=== PATIENT | male | born 1985 | race Caucasian/White ===

== ENCOUNTER → 2023-11-19 | Outpatient (CLI) | payer SELFPAY | END | disposition home or self-care (01) | LOC: LAB 17:34 | PROVIDERS: Visit Provider Family Medicine | DX: N23 Unspecified renal colic (principal) | CPT/HCPCS: 87491; 87591 ==

== ENCOUNTER → 2024-05-01 | Outpatient (CLI) | payer BC, SELFPAY ==
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
== END | disposition home or self-care (01) ==
LOC: MTRAD 15:49
PROVIDERS: PCP Family Medicine; Referring Provider Family Medicine; Visit Provider Family Medicine
DX: M25.519 Pain in unspecified shoulder (principal)
CPT/HCPCS: 73030

== ENCOUNTER 2024-05-18 15:14 | Outpatient (RCR) | payer BC, SELFPAY ==
--- NOTE | 2024-07-27 10:05 | HP.PTEVAL ---
Patient's Visit Information Visit Information Visit Information: BROOK IBRAHIM is a 38 year old M referred to Physical Therapy by Viki Birmingham MD with a diagnosis of L shoulder pain. Date of Evaluation: 05/18/24 Physical Therapist: Guero Keyes DPT Visit Plan Frequency: 1x/Week Duration: 6 Weeks Plan: I gave patient RTC strengthening/stability exercises this date. Pt. has marked pain in his L shoulder suggesting RTC involvement. Pt. desires to complete exercises on his own at this point in time. I an okay with this. If not improving over the next 4-6 weeks he is to come back in or follow up with physician for further imaging. Subjective Subjective: Pt. is here today for his initial evaluation with diagnosis of L shoulder pain. Pt. reports having pain for years, but has just managed. He has got to the point where he has to do something about it. Pt. reports no N/T in his arm, but has a marked difficulty with nay over head movements. Pt. is not having difficulty with job related activities and having trouble with sleeping at times. pt. repots using his R arm for alot of work activities, or just deals with the pain. pt. is now hopeful to figure out what is going on with his arm since, it seems to be progressively getting worse. Pain L shoulder: Pain Intensity (Out of 10): 3 Pain Intensity Range: 1 and 8 Objective Objective: POSTURE: Pt. has normal posture in stance. PALPATION: Pt. has marked pain at anterior shoulder pain and pain along biceps tendon. NEURO: Pt. has normal DTR of BUEs. ROM: L shoulder: PROM: full with increased pain at end range flexion and with ER at 90deg. AROM: flexion 160deg increase NW, abd 145deg increase NW, functional ER C3 increase NW, functional IR L2 increase NW. MMT: L shoulder: flexion 4+/5 increase NW, ER 4/5 increase NW, IR 5/5 mild increase NW, ext 5/5 NE. Special Tests L Shoulder Lift Off Test - Subscapular Tear: Positive L Shoulder Drop Sign - IS Test: Negative L Shoulder Empty Can - SS: Positive L Shoulder Belly Press - SupScap: Positive L Shoulder Neer - Impingement: Positive L Shoulder Bradley Colten - Impingement: Positive L Shoulder Biceps Load Test - Labrum: Negative L Shoulder Speeds Test - Labrum/Biceps: Positive Balance/Special Test Scores Quick DASH Score: 29.5450 Goals Goal 1:: LTG: Pt. to be I with HEP Goal Time Frame: 6-8 Weeks Goal 2:: STG: Pt. to sleep throughout the night without increase in L shoulder pain Goal Time Frame: 2-4 Weeks Goal 3:: LTG: pt. to have full strength of L shoulder, symmetrical to R side. Goal Time Frame: 4-6 Weeks Rehabilitation Potential Physical Therapy Diagnosis: Pt. has signs and symptoms consistent with L shoulder pain. Pt. has some hypomobility, actively and marked pain with activation of his RTC on hi L arm. Pt would benefit from PT to work on strengthening/stabilization of his L shoulder. Rehabilitation Potential: Fair Anticipated Interventions Patient/Client Instruction: Educate patient on: Condition, Plan of Care, Risk Factors and Benefits of Fitness Program For the Purpose of:: To improve self management, To prevent re-injury, To improve ability to perform tasks related to life management and To improve tolerance to ADL's Therapeutic Exercise to Include: Strength training, Power training, Endurance training, Coordination, Body mechanics, Postural training and Flexibilty training For the Purpose of:: To decrease pain, To decrease swelling/inflammation, To increase ROM, To improve nutrient delivery to tissue, To improve muscle performance and motor function and To improve ability to perform ADL's Text: Thank you for the opportunity to evaluate your patient. For Medicare and Medicare HMO plans, please review the plan of care and approve it. It will need to be FAXED BACK to us at [phone] for Medicare purposes. For Medicare only, by signing this I certify the plan of care. Please let me know if there are questions or concerns regarding this plan of care. Physician Signature: Date:
== END 2024-05-18 19:00 | disposition home or self-care (01) ==
LOC: PT 15:14
PROVIDERS: PCP Family Medicine; Referring Provider Family Medicine; Visit Provider Family Medicine
DX: M25.519 Pain in unspecified shoulder (principal)
CPT/HCPCS: 97161

== ENCOUNTER → 2024-08-27 | Outpatient (CLI) | payer BC, SELFPAY ==
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
--- NOTE | 2024-08-27 16:13 | MRI_ITS ---
PROCEDURE: UPPER EXT JOINT ONLY(ROUTINE) 08/27/2024 REASON FOR EXAM: INJURY TECHNIQUE: T1, T2, PD, UPPER EXT JOINT ONLY(ROUTINE) Multiplanar and multisequence images were obtained without IV contrast administration. COMPARISON: COMPARISON: None FINDINGS: Bone Marrow: There is no bony contusion or occult fracture. AC joint: The AC joint is aligned without evidence of separation. There is a type 2 acromion. Rotator cuff: There is no muscular atrophy. There is moderate distal supraspinatus and infraspinatus tendinopathy without full-thickness tear or retraction. The subscapularis and teres minor appear intact. Labrum: The labrum appears intact. Biceps tendon: The biceps tendon is present in the biceps tendon groove without avulsion. There is thickening of the inferior glenohumeral ligament, which can indicate adhesive capsulitis. Effusion: There is no significant joint effusion. There is no significant abnormal bursal fluid. MRI/Upper Ext Joint Only(Routine) IMPRESSION: There is moderate distal supraspinatus and infraspinatus tendinopathy without f ull-thickness tear or retraction. There is thickening of the inferior glenohumeral ligament, which can indicate a dhesive capsulitis. Reading Location: [facility]
--- OUTSIDE RECORDS SUMMARY | 2024-08-27 20:41 | XMS RPT_ITS | CCD ---
Author Organization [facility] Care Team Providers Care Process Control Board Operator Name Role Phone [email or web address] Unavailable Unavailable LUCAS, JOCELYNE Unavailable Unavailable LUCAS, JOCELYNE Unavailable Unavailable LUCAS, JOCELYNE Unavailable Unavailable LUCAS, JOCELYNE Unavailable Unavailable LUCAS, JOCELYNE Unavailable Unavailable LUCAS, JOCELYNE Unavailable Unavailable LUCAS, JOCELYNE Unavailable Unavailable Frederick, Hunter Hoover Primary Care [facility] er HUNTER MACK Attending Melanie vailable FREDERICK, HUNTER HOOVER Primary Care Melanie vailable FREDERICK, HUNTER CHOI MOUNIR Primary Care Melanie vailable FREDERICK, HUNTER HOOVER Attending Melanie vailable FREDERICK, HUNTER CHOI MOUNIR Primary Care Melanie vailable KALPANA HENDERSON Attending Unavailable Viki Birmingham MD Primary Care Provider Viki Birmingham MD Attending Provider Viki Birmingham MD Referring Provider [phone] Viki Birmingham Referring Unavailable Viki Birimngham Attending Unavailable Viki Birmingham Primary Care Unavailable Viki Birmingham Attending Unavailable Viki Birmingham Primary Care Unavailable Viki Birmingham Referring Unavailable Viki Birmingham Attending Unavailable Valencia, Viki Primary Care Unavailable Viki Birmingham Referring Unavailable Viki Birmingham Attending Unavailable Medications Current Medications Medication Drug Class(es) Dates Sig (Normalized) Sig (Original) divalproex sodium 500 mg delayed release oral tablet (1 source) Mood Stabilizer, Anti-epileptic Agent take 1 tablet by mouth twice daily divalproex (DEPAKOTE) 500 MG delayed release (DR) tablet Take 500 mg by mouth 2 (two) times a day . 0 Active Problems Active Problems Problem Classification Problem Date Documented Da te Episodic/Chronic Anxiety disorders (4 sources) Anxiety; Translations: [Anxiety disorder, unspecified] Onset: 11-13-2019 11-13-2019 Chronic Essential hypertension (1 source) Essential (primary) hypertension; Translations: [ESSENTIAL (PRIMARY) HYPERTENSION] Onset: 01-01-2017 Chronic Nonspecific chest pain (3 sources) Other chest pain; Translations: [Chest pain, unspecified] Onset: 01-01-2017 Episodic Other non-traumatic joint disorders (2 sources) Pain in unspecified shoulder; Translations: [Pain in unspecified shoulder] Onset: 05-08-2024 Episodic Past or Other Problems Problem Classification Problem Date Documented Da te Episodic/Chronic Calculus of urinary tract (1 source) Unspecified renal colic; Translations: [Unspecified renal colic] Onset: 02-20-2024 Episodic Unclassified (1 source) Acquired absence of other specified parts of digestive tract; Translations: [ACQUIRED ABSENCE OF OTHER SPECIFIED PARTS OF DIGESTIVE TRACT] Onset: 01-01-2017 Episodic Results Test Name Value Interpretation Reference Range Facility Inital Evaluation (1) - [facility] 07-27-2024 Inital Evaluation (1) - [facility] [address] [place] [address] [address] [place] [address] / REHABILITATION SERVICES INITIAL EVALUATION MR#: [id number] Acct: [id number] Name: BROOK IBRAHIM Rep #: [id number] : 1985 38 From: Guero DCT Referring Dr.: Dr. Viki Birmingham MD Status: REG [facility] Insurance: ANTH SELF PAY INSURANCE Patient's Visit Information Visit Information Visit Information: BROOK IBRAHIM is a 38 year old M referred to Physical Therapy by Viki Birmingham MD with a diagnosis of L shoulder pain. Date of Evaluation: 05/18/24 Physical Therapist: Guero Keyes DPT Visit Plan Frequency: 1x/Week Duration: 6 Weeks Plan: I gave patient RTC strengthening/stabilit y exercises this date. Pt. has marked pain in his L shoulder suggesting RTC involvement. Pt. desires to complete exercises on his own at this point in time. I an okay with this. If not improving over the next 4-6 weeks he is to come back in or follow up with physician for further imaging. Subjective Subjective: Pt. is here today for his initial evaluation with diagnosis of L shoulder pain. Pt. reports having pain for years, but has just managed. He has got to the point where he has to do something about it. Pt. reports no N/T in his arm, but has a marked difficulty with nay over head movements. Pt. is not having difficulty with job related activities and having trouble with sleeping at times. pt. repots using his R arm for alot of work activities, or just deals with the pain. pt. is now hopeful to figure out what is going on with his arm since, it seems to be progressively getting worse. Pain L shoulder: Pain Intensity (Out of 10): 3 Pain Intensity Range: 1 and 8 Objective Objective: POSTURE: Pt. has normal posture in stance. PALPATION: Pt. has marked pain at anterior shoulder pain and pain along biceps tendon. NEURO: Pt. has normal DTR of BUEs. ROM: L shoulder: PROM: full with increased pain at end range flexion and with ER at 90deg. AROM: flexion 160deg increase NW, abd 145deg increase NW, functional ER C3 increase NW, functional IR L2 increase NW. MMT: L shoulder: flexion 4+/5 increase NW, ER 4/5 increase NW, IR 5/5 mild increase NW, ext 5/5 NE. Special Tests L Shoulder Lift Off Test - Subscapular Tear: Positive L Shoulder Drop Sign - IS Test: Negative L Shoulder Empty Can - SS: Positive L Shoulder Belly Press - SupScap: Positive L Shoulder Neer - Impingement: Positive L Shoulder Bradley Colten - Impingement: Positive L Shoulder Biceps Load Test - Labrum: Negative L Shoulder Speeds Test - Labrum/Biceps: Positive Balance/Special Test Scores Quick DASH Score: 29.5450 Goals Goal 1:: LTG: Pt. to be I with HEP Goal Time Frame: 6-8 Weeks Goal 2:: STG: Pt. to sleep throughout the night without increase in L shoulder pain Goal Time Frame: 2-4 Weeks Goal 3:: LTG: pt. to have full strength of L shoulder, symmetrical to R side. Goal Time Frame: 4-6 Weeks Rehabilitation Potential Physical Therapy Diagnosis: Pt. has signs and symptoms consistent with L shoulder pain. Pt. has some hypomobility, actively and marked pain with activation of his RTC on hi L arm. Pt would benefit from PT to work on strengthening/stabiliz ation of his L shoulder. Rehabilitation Potential: Fair Anticipated Interventions Patient/Client Instruction: Educate patient on: Condition, Plan of Care, Risk Factors and Benefits of Fitness Program For the Purpose of:: To improve self management, To prevent re-injury, To improve ability to perform tasks related to life management and To improve tolerance to ADL's Therapeutic Exercise to Include: Strength training, Power training, Endurance training, Coordination, Body mechanics, Postural training and Flexibilty training For the Purpose of:: To decrease pain, To decrease swelling/inflammation, To increase ROM, To improve nutrient delivery to tissue, To improve muscle performance and motor function and To improve ability to perform ADL's Text: Thank you for the opportunity to evaluate your patient. For Medicare and Medicare HMO plans, please review the plan of care and approve it. It will need to be FAXED BACK to us at [phone] for Medicare purposes. For Medicare only, by signing this I certify the plan of care. Please let me know if there are questions or concerns regarding this plan of care. Physician Signature: Date:__ 07/27/24 1005 CC: Dr. Viki Birmingham MD CLS Signed Normal [facility] Shoulder min 2 Viewson 05-01 Shoulder min 2 Views [facility] [address] [place], [place] [id number] Shoulder min 2 Views MR#: [id number] Acct: [id number] Name: BROOK IBRAHIM Rep #: [id number] : 1985 M 38 From: Stacey Valerio DO PCP: Dr. Viki Birmingham MD Status: REG CLI Study: Shoulder min 2 Views Date of Exam: 05/01/24 Exam# [id number] Ordering Dr: Viki Birmingham MD PROCEDURE: SHOULDER MIN 2 VIEWS REASON FOR EXAM: LEFT SHOULDER INJURY TECHNIQUE: 3 view(s) of the left shoulder COMPARISON: None. FINDINGS: No fracture. No suspicious bone lesion. Normal alignment of the acromioclavicular and glenohumeral joints. Soft tissues are unremarkable. RAD/Shoulder min 2 Views IMPRESSION: NEGATIVE SHOULDER SERIES Reading Location: [facility] CC: Dr. Viki Birmingham MD Kitchen Work Supervisor: Signed Normal [facility] [id number] 11-20-2023 [id number] Pending Chlamydia Trachomatis PCR NEGATIVE for Chlamydia trachomatis N. gonorrhoeae PCR Negative for N. gonorrhoeae Normal [facility] Comment on above: Performed By: #### M 8200.2203 #### [facility] [address] [place], [address] XR CHEST PA/APon 02-06-2023 XR CHEST PA/AP EXAMINATION: 2 FRONTAL VIEW XR CHEST PA/AP 02/06/2023 COMPARISON: Chest, 10/26/2013. HISTORY: Dx: R07.9 (Chest pain, unspecified type) Injury/Trauma or Illness?:Illness/Other How long have you had these symptoms (acute/chronic)?:Acute chest pain FINDINGS: The lungs are clear with no acute cardiopulmonary disease. No pulmonary edema, pneumothorax or pleural effusion. The heart, mediastinal structures and visualized bony structures are unremarkable. IMPRESSION: 1. No acute abnormality. [email or web address] Workstation ID: [id number] Dictated by: RENO RON on SatFeb 06, 2023 7:44:37 PM EST Transcribed by: FISH PULIDO on SatFeb 06, 2023 7:45:46 PM EST Finalized by: RENO RON on SatFeb 06, 2023 9:50:05 PM EST Normal [facility] Comment on above: Order Comment: Injur y/Trauma or Illness?:Illness/Other How long have you had these symptoms (acute/chronic)?:Acute Reason for exam?:chest pain and sob History of cancer?:no Surgeries, chemotherapy, or radiation?:none Type of Exam?:Initial Additional signs and symptoms?:none CBC w/Auto Differentialon Anemia JOURNALISM PROFESSOR Normal [facility] Comment on above: Performed By: #### C BC ####[address] [address] Anisocytosis presence JOURNALISM PROFESSOR Normal [facility] Comment on above: Performed By: #### C BC ####[address] [address] Basophils Abs. # 0.0 K/uL Normal 0.0-0.1 [facility] Comment on above: Performed By: #### C BC ####[address] [address] Basophils/100 WBC Auto (Bld) JOURNALISM PROFESSOR Normal [facility] Comment on above: Performed By: #### C BC ####[address] [address] Basophils/100 WBC Auto (Bld) 0.4 % Normal 0.2-1.0 [facility] Comment on above: Performed By: #### C BC ####[address] [address] Bosophillia # JOURNALISM PROFESSOR Normal [facility] Comment on above: Performed By: #### C BC ####[address] [address] Eosinophils JOURNALISM PROFESSOR Normal [facility] Comment on above: Performed By: #### C BC ####[address] [address] Eosinophils 0.0 10*3/uL Normal 0.0-0.2 [facility] Comment on above: Performed By: #### C BC ####[address] [address] Eosinophils/100 leukocytes JOURNALISM PROFESSOR Normal [facility] Comment on above: Performed By: #### C BC ####[address] [address] Eosinophils/100 leukocytes 0.5 % Low 0.9-2.9 [facility] Comment on above: Performed By: #### C BC ####[address] [address] Erythocytosis JOURNALISM PROFESSOR Normal [facility] Comment on above: Performed By: #### C BC ####[address] [address] Erythrocyte distribution width Auto Ratio (RBC) 12.9 % Normal 11.5-14.5 [facility] Comment on above: Performed By: #### C BC ####[address] [address] Erythrocytes (RBC) 0.0 10*6/uL Normal [facility] Comment on above: Performed By: #### C BC ####[address] [address] Erythrocytes (RBC) 5.30 10*6/uL Normal 4.13-5.69 [facility] Comment on above: Performed By: #### C BC ####[address] [address] Hematocrit (HCT) 47.7 % Normal 36.7-50.6 [facility] Comment on above: Performed By: #### C BC ####[address] [address] Hemoglobin mass conc (Bld) 16.5 g/dL Normal 12.4-17.3 [facility] Comment on above: Performed By: #### C BC ####[address] [address] Hypochromia JOURNALISM PROFESSOR Normal [facility] Comment on above: Performed By: #### C BC ####[address] [address] Large Platelets JOURNALISM PROFESSOR Normal [facility] Comment on above: Performed By: #### C BC ####[address] [address] Leukocytosis JOURNALISM PROFESSOR Normal [facility] Comment on above: Performed By: #### C BC ####[address] [address] Leukopenia JOURNALISM PROFESSOR Normal [facility] Comment on above: Performed By: #### C BC ####[address] [address] Lymphocytes JOURNALISM PROFESSOR Normal [facility] Comment on above: Performed By: #### C BC ####[address] [address] Lymphocytes 1.6 10*3/uL Normal 1.3-2.9 [facility] Comment on above: Performed By: #### C BC ####[address] [address] Lymphocytes/100 leukocytes JOURNALISM PROFESSOR Normal [facility] Comment on above: Performed By: #### C BC ####[address] [address] Lymphocytes/100 leukocytes 23.1 % Normal 17.0-45.5 [facility] Comment on above: Performed By: #### C BC ####[address] [address] Macrocytosis JOURNALISM PROFESSOR Normal [facility] Comment on above: Performed By: #### C BC ####[address] [address] MCH 31.0 pg Normal 27.0-31.0 [facility] Comment on above: Performed By: #### C BC ####[place] [address] MCHC mass conc (RBC) 34.5 g/dL Normal 33.0-37.0 [facility] Comment on above: Performed By: #### C BC ####[place] [address] MCV 90.0 fL Normal 80.0-94.0 [facility] Comment on above: Performed By: #### C BC ####[place] [address] Microcytosis JOURNALISM PROFESSOR Normal [facility] Comment on above: Performed By: #### C BC ####[place] [address] Monocytes 0.4 10*3/uL Normal 0.3-0.8 [facility] Comment on above: Performed By: #### C BC ####[place] [address] Monocytes/100 leukocytes 5.3 % Low 5.5-11.7 [facility] Comment on above: Performed By: #### C BC ####[place] [address] Monocytosis % JOURNALISM PROFESSOR Normal [facility] Comment on above: Performed By: #### C BC ####[place] [address] Neutropenia # JOURNALISM PROFESSOR Normal [facility] Comment on above: Performed By: #### C BC ####[place] [address] Neutropenia % JOURNALISM PROFESSOR Normal [facility] Comment on above: Performed By: #### C BC ####[place] [address] Neutrophilia % JOURNALISM PROFESSOR Normal [facility] Comment on above: Performed By: #### C BC ####[address] [address] Neutrophils 4.9 10*3/uL High 2.2-4.8 [facility] Comment on above: Performed By: #### C BC ####[address] [address] Neutrophils JOURNALISM PROFESSOR Normal [facility] Comment on above: Performed By: #### C BC ####[address] [address] Neutrophils/100 WBC Auto (Bld) 70.7 % High 43.0-65.0 [facility] Comment on above: Performed By: #### C BC ####[address] [address] NRBC % 0.0 % Normal [facility] Comment on above: Performed By: #### C BC ####[address] [address] Pancytopenia JOURNALISM PROFESSOR Normal [facility] Comment on above: Performed By: #### C BC ####[address] [address] Platelet mean volume (PMV) 9.7 fL Normal 7.4-10.4 [facility] Comment on above: Performed By: #### C BC ####[address] [address] Platelets 177 10*3/uL Normal 148-402 [facility] Comment on above: Performed By: #### C BC ####[address] [address] Poikilocytosis JOURNALISM PROFESSOR Normal [facility] Comment on above: Performed By: #### C BC ####[address] [address] Small Platelets JOURNALISM PROFESSOR Normal [facility] Comment on above: Performed By: #### C BC ####[facility] [place] [address] Thrombocytopenia JOURNALISM PROFESSOR Normal [facility] Comment on above: Performed By: #### C BC ####[address] [address] Thrombocytopenia. JOURNALISM PROFESSOR Normal [facility] Comment on above: Performed By: #### C BC ####[address] [address] Thrombocytosis JOURNALISM PROFESSOR Normal [facility] Comment on above: Performed By: #### C BC ####[address] [address] WBC (Leukocytes) 6.9 10*3/uL Normal 3.6-10.8 [facility] Comment on above: Performed By: #### C BC ####[address] [address] CHEST APon 11-02-2016 CHEST AP HISTORY: RFE: Chest PainCOMPARISON: NoneFINDINGS: A single frontal view of the chest was obtained. The cardiomediastinal silhouette is within normal limits. The pulmonary vascular markings are notsigificantly distended. No focal pulmonary consolidation, significant effusionor pneumothorax.IMPRESSIO N: There is no radiographic evidence for acute pulmonary process.Electronically Signed by Reggie Alvarez 11/02/2016 15:10 Normal [facility] Comprehensive Metabolic Pane gemma 11-02-2016 Alanine aminotransferase (ALT) 32 U/L Normal 13-66 [facility] Comment on above: Performed By: #### C MP ####[address] [address] Albumin 4.4 g/dL Normal 3.4-5.0 [facility] Comment on above: Performed By: #### C MP ####[address] [address] Albumin/Globulin Ratio 1.4 {ratio} Normal 1.1-2.5 [facility] Comment on above: Performed By: #### C MP ####[address] [address] Alkaline phosphatase (ALP) 86 U/L Normal 54-112 [facility] Comment on above: Performed By: #### C MP ####[address] [address] Anion gap 12.4 mmol/L Normal 8.0-16.0 [facility] Comment on above: Result Comment: CO RRECTED REPORT: Previous result was 12.9 at 15:17 on 11/02/16 Performed By: #### C MP ####[address] [address] Aspartate aminotransferase (AST) 18 U/L Normal 3-39 [facility] Comment on above: Performed By: #### C MP ####[address] [address] Bilirubin Ql (U) 0.52 mg/dL Normal 0.00-0.99 [facility] Comment on above: Performed By: #### C MP ####[address] [address] BUN/Creatinine Ratio 11 mg/mg Normal 6-20 [facility] Comment on above: Performed By: #### C MP ####[address] [address] Calcium 9.6 mg/dL Normal 8.2-10.0 [facility] Comment on above: Performed By: #### C MP ####[address] [address] Chloride 102 mmol/L Normal 94-110 [facility] Comment on above: Performed By: #### C MP ####[address] [address] CO2 27 mmol/L Normal 21-34 [facility] Comment on above: Performed By: #### C MP ####[address] [address] Creatinine 1.22 mg/dL High 0.50-1.17 [facility] Comment on above: Performed By: #### C MP ####[address] [address] eGFR (black) mL/min/{1.73_m2} Normal >60 [facility] Comment on above: Result Comment: Reflexologist karyn Kidney Disease less than 60 mL/min/1.73 c5Inupph Failure less than 15 mL/min/1.73 [id number] estimated GFR by age:30-39 years 107 mL/min/1.73 m2 Performed By: #### C MP ####[address] [address] eGFR (non-black) mL/min/{1.73_m2} Normal >60 [facility] Comment on above: Performed By: #### C MP ####[address] [address] Globulin 3.2 g/dL Normal 1.5-4.5 [facility] Comment on above: Performed By: #### C MP ####[address] [address] Glucose mass conc 104 mg/dL High 65-100 [facility] Comment on above: Performed By: #### C MP ####[address] [address] Potassium molar conc 3.4 mmol/L Normal 3.3-5.1 [facility] Comment on above: Performed By: #### C MP ####[address] [address] Protein 7.6 g/dL Normal 6.1-8.2 [facility] Comment on above: Performed By: #### C MP ####[address] [address] Sodium 138 mmol/L Normal 132-145 [facility] Comment on above: Performed By: #### C MP ####[address] [address] Urea nitrogen 14.0 mg/dL Normal 3.2-26.9 [facility] Comment on above: Performed By: #### C MP ####[address] [address] Creatine Kinaseon 11-02-2016 Creatine kinase (CK) 149 U/L Normal 39-308 [facility] Comment on above: Performed By: #### C PK ####[place] [address] D-Dimeron 11-02-2016 Fibrin D-dimer FEU ug/mL Normal 0-229 [facility] Comment on above: Result Comment: The diagnostic cutoff (PE/DVT): 230 ng/mL (DDU)The results of this test should alway be interpreted in conjunction with apretest probability assessment as a negative indicator for deep -- veinthrobosis (DVT) or pulmonary embolism (PE). Note new reference range and Test units 10-27-13 06:15 Performed By: #### D MICHAEL ####[address] [address] Troponin ion 11-02-2016 Troponin I.cardiac mass conc ng/mL Normal 0.000-0.056 [facility] Comment on above: Result Comment: Norm al: <0.056 ng/mLIndeterminate: 0.057 - 0.59 ng/mLPositive: >0.59 ng/mL Performed By: #### L TROP ####[address] [address] Troponin I.cardiac mass conc JOURNALISM PROFESSOR Normal 0.00-0.07 [facility] Comment on above: Result Comment: Norm al: <0.007 ng/mLIndeterminate: 0.007 - 0.60 ng/mLPositive: >0.60 ng/mL Performed By: #### L TROP ####[facility] [place] [address] Vital Signs Date Time Vital Sign Value Performing Clinician Paul guzman 11-12-2019 15:39-0400 BMI (Body Mass Index) 29.84 kg/m2 [facility] 11-12-2019 15:39-0400 Body Temperature 99.81 [degF] [facility] 11-12-2019 15:39-0400 Body weight 122.43 kg [facility] 11-12-2019 15:39-0400 BP Diastolic 80 mm[Hg] [facility] 11-12-2019 15:39-0400 BP Systolic 136 mm[Hg] [facility] 11-12-2019 15:39-0400 Height 202.6 cm [facility] 11-12-2019 15:39-0400 Pulse (Heart Rate) 55 /min [facility] 11-12-2019 15:39-0400 Pulse Oximetry 95 % [facility] 11-12-2019 15:39-0400 Respiratory Rate 18 /min [facility] Encounters Encounter Date Encounter Type Care Provider Facility Start: 08-27-2024 ambulatory Viki Birmingham Facility:[facility] Start: 05-18-2024 ambulatory Viki Birmingham Facility:[facility] Start: 05-01-2024 End: 05-01-2024 ariella Birmingham MD Work Phone: [facility] Work Phone: Start: 05-01-2024 End: 05-01-[address] Viki Birmingham MD -Radiology, [place] Work Phone: Start: 05-01-2024 End: 05-01-2024 ambulatory Viki Valencia Facility:[facility] Start: 11-19-2023 End: 11-19-2023 ambulatory [facility] Facility:[facility] Start: 02-06-2023 End: 02-06-2023 Emergency department patient visit HUNTERMELISSA CHOI DANEJORGE [facility] Start: 08-02-2020 End: 08-02-2020 [facility] Start: 11-12-2019 End: 11-13-2019 [facility] Start: 11-12-2019 End: 11-13-2019 Office outpatient visit 15 minutes Hunter Denton Eastssef Work Phone: [facility] Comment on above: Anxiety (Primary Dx) Start: 02-27-2017 End: 02-27-2017 Ambulatory [facility] Facility: Start: 11-29-2016 End: 11-29-2016 Ambulatory [facility] Facility: Start: 11-08-2016 End: 11-08-2016 Ambulatory [facility] Facility: Start: 11-02-2016 End: 11-02-2016 Emergency department patient visit NITZA. Facility: Procedures Date Procedure Procedure Detail Performing Clinician Start: 05-01-2024 Plain X-ray of shoulder Viki Birmingham MD Work Phone: Start: 11-12-2019 Adult depression screening assessment Hunter Mack Plan of Treatment Date Care Activity Detail Author Start: 11-11-2020 Adolescent depressio n screening assessment Depression Screening (PHQ9) [facility] Start: 12-28-2019 End: 12-28-2019 Office Visit 12/28/2019 Office Visit Primary Care Hunter Mack MD [address] [place] [address] [phone] [facility] Start: 10-13-2019 Influenza vaccinatio n given Sequential Influenza Vaccine (#1) [facility] Start: 2002 Hepatitis C antibody , confirmatory test Hepatitis C Screening [facility] Start: 09-01-1999 HIV screening HIV Screening [facility] Start: 09-01-1987 History and physical examination, annual for health maintenance Wellness Visit [facility] Start: 1985 Tetanus vaccination Tetanus: Every 1 0yrs [facility] Payers Date Payer Category Payer Self-pay 2022 Unknown [id number] 2019 Unknown [employer] BC[employer] OUT OF STATE [facility] [id number] 2019-Present [id number] 2011 Unknown [id number] 1984 Unknown [id number] 1984 Unknown [id number] 1984 Unknown [id number] Unknown [id number] Unknown [id number] Unknown [id number] Unknown [id number] Social History Date Type Detail Facility Start: 11-13-2019 [facility] Start: 11-13-2019 Tobacco use and exposure Current user [facility] History of tobacco use Snuff [facility] Start: 11-13-2019 Alcohol intake Current drinke r of alcohol (finding) [facility] Start: 11-12-2019 History SD[facility] Start: 11-12-2019 History SDOH [facility] Start: 11-12-2019 History SDOH Food Worry 1 [facility] Start: 11-12-2019 History SDOH Transpo rt Non-Med 98 [facility] Sex Assigned At Not on file [place] [facility] Exposure to SARS-CoV -2 (event) Not sure [facility] Work Phone: Start: 05-08-2024 Sex Male (finding) [facility] Start: 1985 Sex Assigned At Male [facility] Radiology Diagnostic study note 05-01-2024 Note Date & Type Note Facility 05-01-2024 Radiology Diagnostic study note [facility] Imaging Services [address] [place], [place] [id number] Shoulder min 2 Views MR#: [id number] Acct: [id number] Name: BROOK IBRAHIM Rep #: [id number] : 1985 M 38 From: Javier Valerio DO PCP: Dr. Viki Birmingham MD Status: REG CL I Study:Shoulder min 2 Views Date of Exam: 05/01/24 Exam# [id number] Ordering Dr: Mary Jane Birmingham MD PROCEDURE: SHOULDER MIN 2 VIEWS REASON FOR EXAM: LEFT SHOULDER INJURY TECHNIQUE: 3 view(s) of the left shoulder COMPARISON: None. FINDINGS: No fracture. No suspicious bone lesion. Normal alignment of the acromioclavicular and glenohumeral joints. Soft tissues are unremarkable. RAD/Shoulder min 2 Views IMPRESSION: NEGATIVE SHOULDER SERIES Reading Location: [facility] CC: Dr. Viki Birmingham MD ~ Kitchen Work Supervisor: Signed [facility] Evaluation note Note Date & Type Note Facility Evaluation note No assessment information availa ble [facility] Work Phone: Reason for referral (narrative) Note Date & Type Note Facility Reason for referral (narrative) No reason for referral information available [facility] Work Phone: Summary Purpose Family History No Family History Records FoundNo Family History Records FoundNo Family History Records FoundNo Family History Records Found Advance Directives No Advanced Directives Records FoundDocuments on File Type Date 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 [place] [address] [facility] [address] [place] [address] Deep Breathing / Anxiety Most people who don't have anxiety tend to take about 8 breaths per minute. Most individuals with anxiety or high levels of stress notice they take more than 8 breaths per minute, this tends to be short, shallow, chest breathing. One of the best ways to combat shallow chest breathing is to practice diaphragmatic breathing. Thisis really just learning to take slow full breaths from your abdomen instead of short shallow breaths from your chest. If you practice this just 5 minutes each day you can significantly reduce your overall level of anxiety and stress. Slow deep breaths tell your body to relax and help turn off your fight or flight response So, let's turn our attention to learning how to do this. It might be easier at first to practice while laying down. If this isn't possible, do the exercise sitting in a chair with both feet on the floor. Place one hand on your stomach and one on your upper chest. The goal here is to inhale in a waythat only moves your lower hand, while your upper hand stays still. You might just do this for a few breaths in an exaggerated way to get a feel for it. The reason it's important to breath from your abdomen is because you will be able to fill your lungs up from the bottom up. This helps you to takea full breath that is much more comfortable, and it s a more efficient way to breath. Try to use deep breathing for 10 breaths. count to 4 for each inhalation and then pause briefly. Then, as you exhale, try to let the air out slowly - also taking to the count of 4. So, inhale to the count of 4, you'll pause, and then you will exhale to a count to 4 - that will be one full breath. Try to do 10. If you are used to breathing shallowly from your chest, you might find this a little bit uncomfortable at first. You might also feel a little light-headed. If this happens, just go at a pace that is a little bit quicker, maybe 3 counts in, pause, 3 counts out. Don't let yourself get frustrated, if you can t follow the 4 count at first, with practice you will be able to slow your breathing down. OK. Get comfortable laying down or sitting up in a chair. Place one hand on your stomach and one onyour upper chest. Remember, you only want your lower hand to move during this exercise. It is also helpful to inhale through your nose and exhale through your mouth. This way you can concentrate on the cool refreshing air coming in and the warm air leaving your body. OK... Get ready... And let's begin... Inhale, two, three, four.... Pause .... Exhale, two, three, four. (Go ten times) documented in this encounter History of Present Illness * Hunter Mack MD - 11/12/2019 4:07 PM EDT Chief Complaint Patient presents with GAD7 SCORE : 17! HPI: Brook Ibrahim is 34-year-old gentleman presenting today for further evaluation of anxiety symptoms. Patient is otherwise healthy new to our clinic coming to establish care as well. Patient reports concerns for severe anxiety related to previous negative experience with pet dogs. Has had 2 pet dogs 2 years ago when they started getting flea infection and he was trying hard to keep them away from his 3 daughters, started becoming very anxious about it until he let them go. Forthe past 2 years he has been doing good not experiencing any anxiety signs and symptoms. Recently family started considering having another pet dog, as he was searching he started having reemerging anxiety symptoms including chest tightness and pressure last longing for 3 to 4 days. Called his prior primary care physician who suggested that he would start on Depakote 500 mg twice a dayfor a month until he reestablishes care for an antianxiety medication. Patient reports that as soon as he took the decision to not have another pet dog his anxiety symptoms resolved. Stopped taking Depakote after 2 weeks. Denies any depression signs and symptoms or suicidal ideations. Currently has been symptom-free forabout 1 week and has been around other family members and friends' dogs with no further concerns. No past medical history on file. Past Surgical History: Procedure Laterality Date APPENDECTOMY VASECTOMY Family History Problem Relation Age of Onset Hypertension Father Hypertension Brother Social History Tobacco Use Smoking status: Never Smoker Smokeless tobacco: Current User Types: Snuff Substance Use Topics Alcohol use: Yes Frequency: Monthly or less Drinks per session: 3 or 4 Binge frequency: Less than monthly Drug use: Never Review of Systems Constitutional: Negative for activity change, chills, fatigue and fever. HENT: Negative for sinus pain, sore throat, trouble swallowing and voice change. Eyes: Negative. Respiratory: Negative for cough, chest tightness, shortness of breath and wheezing. Cardiovascular: Negative for chest pain, palpitations and leg swelling. Gastrointestinal: Negative for abdominal distention, abdominal pain, anal bleeding, diarrhea, nausea and vomiting. Endocrine: Negative. Genitourinary: Negative for dysuria and flank pain. Musculoskeletal: Negative for arthralgias, back pain, gait problem and myalgias. Skin: Negative for rash. Allergic/Immunologic: Negative. Neurological: Negative. Hematological: Negative for adenopathy. Psychiatric/Behavioral: Negative. Physical Exam Constitutional: General: He is not in acute distress. Appearance: He is not ill-appearing. HENT: Head: Normocephalic and atraumatic. Eyes: Extraocular Movements: Extraocular movements intact. Conjunctiva/sclera: Conjunctivae normal. Pupils: Pupils are equal, round, and reactive to light. Neck: Musculoskeletal: Normal range of motion and neck supple. Cardiovascular: Rate and Rhythm: Normal rate and regular rhythm. Pulses: Normal pulses. Heart sounds: Normal heart sounds. No murmur. No gallop. Pulmonary: Effort: Pulmonary effort is normal. Breath sounds: Normal breath sounds. No wheezing, rhonchi or rales. Chest: Chest wall: No tenderness. Abdominal: General: Abdomen is flat. Bowel sounds are normal. There is no distension. Palpations: Abdomen is soft. There is no mass. Tenderness: There is no abdominal tenderness. There is no right CVA tenderness, left CVA tenderness, guarding or rebound. Musculoskeletal: Normal range of motion. General: No tenderness. Right lower leg: No edema. Left lower leg: No edema. Skin: General: Skin is warm. Findings: No erythema or rash. Neurological: General: No focal deficit present. Mental Status: He is alert and oriented to person, place, and time. Sensory: No sensory deficit. Motor: No weakness. Gait: Gait normal. Psychiatric: Mood and Affect: Mood normal. Behavior: Behavior normal. Thought Content: Thought content normal. Judgment: Judgment normal. Patient's Medications New Prescriptions No medications on file Previous Medications DIVALPROEX (DEPAKOTE) 500 MG DELAYED RELEASE (DR) TABLET Take 500 mg by mouth 2 (two) times a day . Modified Medications No medications on file Discontinued Medications No medications on file Health Maintenance Due Topic Date Due Tetanus: Every 10yrs 1985 Wellness Visit 09/01/1987 HIV Screening 09/01/1999 Hepatitis C Screening 2002 Sequential Influenza Vaccine (1) 10/13/2019 Assessment & Plan Problem List Items Addressed This Visit Other Anxiety - Primary Patient's PHQ 9 today score of 8, SIMA 7 score of 19. Reports that these scores are situational onlyon exposure to his known trigger with getting another pet dog. Patient does not have any current concerns for generalized anxiety disorder and might benefit from further counseling regarding signs and symptoms of phobia and situational anxiety. Plan: Provided with resources for behavioral health centers in [place] to try. Follow-up on anxiety signs and symptoms and progress with counseling as well as annual check in 4 weeks. Return in about 4 weeks (around 12/10/2019). HUNTER MACK MD [facility] [address] [place] [address] [facility] [address] [place] [phone] Dept: [phone] Depression Screening 11/12/2019 Little interest or pleasure in doing things 1 Feeling down, depressed, or hopeless 0 PHQ-2 Total Score 1 Trouble falling or staying asleep, or sleeping too much 2 Feeling tired or having little energy 2 Poor appetite or overeating 3 Feeling bad about yourself - or that you are a failure or have let yourself or your family down 0 Trouble concentrating on things, such as reading the newspaper or watching television 0 Moving or speaking so slowly that other people could have noticed. Or the opposite - being so fidgety or restless that you have been moving around a lot more than usual 0 Thoughts that you would be better off , or of hurting yourself in some way 0 PHQ-9 Total Score 8 documented in this encounter Assessments Diagnosis Anxiety- Primary Anxiety state, unspecified Chief Complaint and Reason for Visit Chief Complaint Admit Date LEFT SHOULDER May 01, 2024 3:4 5pm Additional Source Comments (unrecognized sect ion and content) No Status Records FoundNo Status Records FoundNo Status Records FoundNo Status Records Found INFORMATION SOURCE (unrecogn ized section and content) DATE CREATED AUTHOR 08/06/2017 [facility] DATE CREATED AUTHOR AUTHOR'S ORGANIZ ATION 08/03/2020 [facility] DATE CREATED AUTHOR AUTHOR'S ORGANIZ ATION 02/08/2023 [facility] DATE CREATED AUTHOR AUTHOR'S ORGANIZ ATION 08/25/2024 [facility] Reason for Visit (unrecogniz ed section and content) Reason Comments GAD7 SCORE : 17! Assessment & Plan Note - Hunter Mack MD - 11/13/2019 1:47 PM EDT Miscellaneous Notes (unrecog nized section and content) Associated Problem(s): Anxiety Patient's PHQ 9 today score of 8, SIMA 7 score of 19. Reports that these scores are situational only on exposure to his known trigger with getting another pet dog. Patient does not have any current concerns for generalized anxiety disorder and might benefit from further counseling regarding signs and symptoms of phobia and situational anxiety. Plan: Provided with resources for behavioral health centers in [place] to try. Follow-up on anxiety signs and symptoms and progress with counseling as well as annual check in 4 weeks. documented in this encounter Care Teams (unrecognized sec tion and content) Team Status: Active Member Role Status Scott Birmingham MD Primary Care Provider Active Team Status: Inactive Member Role Status Scott Birmingham MD Primary Care Provider Active St art: May 01, 2024 End: May 01, 2024 Viki Birmingham MD Attending Provider Active Start : May 01, 2024 End: May 01, 2024 Viki Birmingham MD Referring Provider Active Start : May 01, 2024 End: May 01, 2024 Goals (unrecognized section and content) Goals may be documented in a n alternate section FOR RECORDS PERTAINING TO PATIENTS WHO ARE OR HAVE BEEN ENROLLED IN A CHEMICAL DEPENDENCY/SUBSTANCEABUSE PROGRAM, SOME INFORMATION MAY BE OMITTED. This clinical summary was aggregated from multiple sources. Caution should be exercised in using it in the provision of clinical care. This summary normalizes information from multiple sources, and as a consequence, information in this document may materially change the coding, format and clinical context of patient data. In addition, data may be omitted in some cases. CLINICAL DECISIONS SHOULD BE BASED ON THE PRIMARY CLINICAL RECORDS. Ruth [facility] – [facility]. provides no warranty or guarantee of the accuracy or completeness of information in this document.
== END | disposition home or self-care (01) ==
LOC: MRI 15:54
PROVIDERS: PCP Family Medicine; Referring Provider Family Medicine; Visit Provider Family Medicine
DX: M25.519 Pain in unspecified shoulder (principal)
CPT/HCPCS: 70030; 73221

== ENCOUNTER → 2024-11-07 | Outpatient (CLI) | payer BC, SELFPAY ==
[2024-11-07 10:00] LABS: Hematocrit 45.8 % (40-54); Hemoglobin 16.0 g/dL (13.0-16.5); Mean Corp Hgb Conc 34.9 g/dL (32-36); Mean Corpuscular Volume 90.0 fL (80-94); Mean Platelet Vol. 11.2 fl (6.2-12.0); Platelet Count 171 K/mm3 (150-450); RBC Distribution Width CV 12.3 % (11.6-14.6); RBC Distribution Width SD 40.8 fl (35.1-43.9); Red Blood Count 5.09 M/mm3 (4.6-6.2); White Blood Count 5.5 K/mm3 (4.4-11.0)
[2024-11-07 10:35] LABS: AST(SGOT) 28 U/L (<=37); Alanine Aminotransfer ALT/SGPT 27 U/L (<=46); Albumin, Serum 4.5 g/dL (3.5-5.0); Alkaline Phosphatase 72 U/L (40-129); Anion Gap 9 (5-15); BUN 15 mg/dL (4-19); BUN/Creat Ratio 14.0 RATIO (10-20); Calcium,Total 9.4 mg/dL (7.6-11.0); Carbon Dioxide 26.0 mmol/L (21.0-32.0); Chloride 104 mmol/L (98-108); Globulin 2.5 g/dL (2.2-4.2); Glucose 98 mg/dL (70-99); Potassium 4.3 mmol/L (3.3-5.1)
[2024-11-07 11:04] LABS: Cholesterol 188 mg/dL (<=200); Low Density Lipoprotein Calc. 121 mg/dL; Triglycerides 121 mg/dL; Very Low Density Lipoprotein 24 mg/dL (5-40); cholesterol:hdl ratio screen 4.43
== END | disposition home or self-care (01) ==
LOC: LAB 09:36
PROVIDERS: PCP Family Medicine; Referring Provider Family Medicine; Visit Provider Family Medicine
DX: Z00.00 Encounter for general adult medical examination without abnormal findings (principal); Z13.220 Encounter for screening for lipoid disorders; Z13.1 Encounter for screening for diabetes mellitus; R53.83 Other fatigue
CPT/HCPCS: 36415; 80053; 80061; 84403; 85027

== ENCOUNTER → 2024-12-25 | Outpatient (CLI) | payer BC, SELFPAY | END | disposition home or self-care (01) | LOC: MFPLAB 08:08 | PROVIDERS: PCP Family Medicine; Visit Provider Family Medicine | DX: R79.89 Other specified abnormal findings of blood chemistry (principal) | CPT/HCPCS: 36415; 84403 ==